=== PATIENT | female | born 1935 | race Caucasian/White ===

== ENCOUNTER 2018-08-21 06:50 | Emergency (ER) | payer MEDICARE ==
[~2018-08-21] VITALS: Ht 167.6 cm; Wt 52.2 kg
[~2018-08-21 06:50] MED LIST: ACIDOPHILUS1 EAC4 PO; ASPIRIN81 MG PO; ATIVAN0.5 MG PO; NORVASC2.5 MG PO
--- OUTSIDE RECORDS SUMMARY | 2018-08-21 06:53 | XMS REPORT ---
Author Author [facility] Address Unknown Phone Unavailable Care Team Providers Care Rn Endocrinology Name Role Phone LACIE RODRÍGUEZ Unavailable Unavailable Payers Payer Name Policy Type Policy Number Effective Date Expiration Date Problems This patient has no known problems. Allergies, Adverse Reactions, Alerts Allergy Name Allergy Type Status Severity Reaction(s) Onset Date Inactive Date Treating Clinician Comments Iodine and Iodide Containing Produc DA Active 2018-05-14 00:00:00 NSAIDS (Non-Steroidal Anti-Inflamma DA Active 2018-05-14 00:00:00 Penicillins DA Active AL 2018-05-14 00:00:00 Sulfa (Sulfonamide Antibiotics) DA Active AL 2018-05-14 00:00:00 codeine DA Active AL 2018-05-14 00:00:00 hydrocodone DA Active U 2018-05-14 00:00:00 ondansetron DA Active U 2018-05-14 00:00:00 ondansetron DA Active U 2017-08-08 00:00:00 Iodine and Iodide Containing Produc DA Active 2017-07-27 00:00:00 Penicillins DA Active AL 2017-07-27 00:00:00 Sulfa (Sulfonamide Antibiotics) DA Active AL 2017-07-27 00:00:00 codeine DA Active AL 2017-07-27 00:00:00 hydrocodone DA Active U 2017-07-27 00:00:00 Medications This patient has no known medications. Results Test Description Test Time Test Comments Text Results Atomic Results Result Comments - XR HIP W/PEL UNI 2+V LT 2018-08-09 13:35:00 Name: MARALJOHN [facility] : 1935 Age/S:82 /F [address] [facility] Unit#:[id number] Loc: [place] [address] Phys: Sigifredo Elliott MD Dis Date: PHONE #: [phone] Status: PRE ER FAX #: [phone] Exam Date: 08/09/2018 Reason: pain EXAMS: CPT CODE: [id number] XR HIP W/PE[place] UNI 2+[place] [address] TECHNIQUE - XR HIP W/PEL UNI 2+V LT . COMPARISON: None provided. HISTORY: 82 years Female pain FINDINGS: Bones: No acute fracture. No dislocation. No suspicious bone lesion. Fixation device left hip in place on anatomic alignment. Joints: Mild osteophytes. Mild joint space reduction. No subchondral bone lesions. No bony erosions. Soft tissues: No significant abnormalities. Other: None. IMPRESSION: No acute fracture. Mild osteoarthritic changes. Fixation device left hip in place on anatomic alignment. at 1336 Reported and signed by: Shawn Brunner M.D. CC: Lacie Medellin MD; Sigifredo Elliott MD Technologist: Sharon Lewis RT(R)(CT) Trnscrpt Data: 08/09/2018 (1988) [email or web address] Orig Print D/T: S: 08/09/2018 (1031) PAGE 1 Signed Report - XR L-SPINE 2/3 VIEWS 2018-08-09 13:32:00 Name: JOHN ALICIA [facility] : 1935 Age/S:82 /F [address] [facility] Unit#:[id number] Loc: [place] [address] Phys: Sigifredo Elliott MD Dis Date: PHONE #: [phone] Status: PRE ER FAX #: [phone] Exam Date: 08/09/2018 Reason: pain EXAMS: CPT CODE: [id number] XR L-SPINE 2/3 VIEWS 54032 TECHNIQUE - XR L-SPINE 2/3 VIEWS . COMPARISON: None provided. HISTORY: 82 years Female pain FINDINGS: Bones: Five non-rib bearing lumbar vertebrae. Multilevel osteophytes. No compression fractures. No suspicious focal bone lesion. Alignment: No spondylolisthesis. Scoliosis. Intervertebral discs: Multilevel disc height reduction. Facet joints: Multilevel hypertrophic changes in lumbar spine. SI joints: No significant abnormalities. Soft tissues: No abnormalities. Other: None. IMPRESSION: Multilevel degenerative changes. No acute fractures. at 1332 Reported and signed by: Shawn Brunner M.D. CC: Lacie Medellin MD; Sigifredo Elliott MD Technologist: Sharon Lewis RT(R)(CT) Trnscrpt Data: 08/09/2018 (3331) [email or web address] Orig Print D/T: S: 08/09/2018 (2593) PAGE 1 Signed Report - XR HIP W/PEL UNI 2+V LT 2018-08-01 12:06:00 FAX: Mumtaz Medellin [phone] [place]: O St: REG FAX: Ender Rodríguez MD [phone] Name: JOHN ALICIA [facility] : 1935 Age/S: 82/F [address] [facility] Unit #: [id number] Loc: [facility] [place] [address] Phys: Ender Kirk MD Acct: [id number] Dis Date: Status: REG RCR PHONE #: [phone] Exam Date: 08/01/2018 1159 FAX #: [phone] Reason: FX EXAMS: CPT CODE: [id number] XR HIP W/PEL UNI 2+[place] [address] HISTORY: Fracture follow-up. COMPARISON: June 20, 2018. 3 threaded screws stabilizing the left femoral neck and good anatomic alignment. Narrowed hip joint without AVN. Symphysis is well opposed. SI joint is unremarkable. Soft tissues and mineralization are normal vascular calcifications. IMPRESSION: 3 threaded screws stabilizing the left femoral neck and good anatomic alignment. at 1206 Reported and signed by: Onur Steven M.D. CC: Lacie Medellin MD; Ender Kirk MD Technologist: RT Joana(R) Trnscrd Date/Time/By: 08/01/2018 (8397) : By: [email or web address] Orig Print D/T: S: 08/01/2018 (3772) PAGE 1 Signed Report - XR HIP W/PEL UNI 2+V LT 2018-06-20 10:57:00 FAX: Mumtaz Medellin Si [phone] [place]: O St: REG FAX: Ender Rodríguez MD [phone] Name: JOHN ALICIA [facility] : 1935 Age/S: 82/F [address] [facility] Unit #: [id number] Loc: [place] [address] Phys: Ender Kirk MD Acct: [id number] Dis Date: Status: REG RCR PHONE #: [phone] Exam Date: 06/20/2018 1037 FAX #: [phone] Reason: FX EXAMS: CPT CODE: [id number] XR HIP W/PEL UNI 2+[place] [address] HISTORY: Fracture follow-up. COMPARISON: May 28, 2018. Threaded screws (3) stabilizing the left hip. Fracture line is not visible. Hip joint is narrowed. No AVN. Symphysis is well opposed. SI joint is unremarkable. Trabecular pattern and mineralization are normal. IMPRESSION: Threaded screws stabilizing the left hip in good anatomic alignment without AVN. at 1057 Reported and signed by: Onur Steven M.D. CC: Lacie Medellin MD; Ender Kirk MD Technologist: RT Joana(R) Trnscrd Date/Time/By: 06/20/2018 (5646) : By: [email or web address] Orig Print D/T: S: 06/20/2018 (1090) PAGE 1 Signed Report - CT UP EXTREM W/O CONT RT 2018-06-04 15:09:00 Name: JOHN ALICIA [facility] : 1935 Age/S: 82 / F [address] [facility] Unit #: [id number] Loc: [place] [address] Phys: Benjamin Frances Presley DO Acct: [id number] Dis Date: Status: ADM IN PHONE #: [phone] Exam Date: 06/04/2018 1107 FAX #: [phone] Reason: FALL Report Has Been Amended EXAMS: CPT CODE: [id number] [place] EXTREM W/[place] [address] Addendum - 06/04/2018 SIGNED 06/05/2018 ADDENDUM: [id number] CT/CTUEWORT CORRECTION: EXAM SHOULD READ CT RIGHT ELBOW WITHOUT CONTRAST at 1035 Reported and signed by: Onur Steven M.D. Transcribed: 06/04/2018 (9027) [email or web address] Report HISTORY: Epicondylar fracture versus artifact. COMPARISON: X-ray from June 01, 2018. CT left elbow without contrast: Automated exposure control. 3-D images No fracture of the medial epicondyle. No fracture of the lateral epicondyle. No fracture of the radius or the ulnar of the visualized humerus. No joint fluid is no collin. No bursal fluid collection. Musculature appears within normal limits. IMPRESSION: No acute fracture of the elbow including the medial epicondyle. No joint fluid. at 1502 Reported and signed by: Onur Steven M.D. CC: Lacie Cleaning MD; Benjamin Frances DO Technologist:Evelia Burgos,RT(R),CT CTDI: DLP: Trnscb Date/Time: 06/04/2018 (1502) [email or web address] Orig Print D/T: S: 06/04/2018 (2565) CTDI: DLP: PAGE 1 Signed Report - CT UP EXTREM W/O CONT RT 2018-06-04 15:02:00 Name: JOHN ALICIA [facility] : 1935 Age/S: 82 / F [address] [facility] Unit #: [id number] Loc: [place] [address] Phys: Benjamin Frances DO Acct: [id number] Dis Date: Status: ADM IN PHONE #: [phone] Exam Date: 06/04/2018 1107 FAX #: [phone] Reason: FALL EXAMS: CPT CODE: [id number] [place] UP EXTREM W/[place] [address] HISTORY: Epicondylar fracture versus artifact. COMPARISON: X-ray from June 01, 2018. CT left elbow without contrast: Automated exposure control. 3-D images No fracture of the medial epicondyle. No fracture of the lateral epicondyle. No fracture of the radius or the ulnar of the visualized humerus. No joint fluid is noted. No bursal fluid collection. Musculature appears within normal limits. IMPRESSION: No acute fracture of the elbow including the medial epicondyle. No joint fluid. at 1502 Reported and signed by: Onur Steven M.D. CC: Lacie Medellin MD; Benjamin Frances DO Technologist:Evelia Burgos ,RT(R),CT CTDI: DLP: Trnscb Date/Time: 06/04/2018 (4764) [email or web address] Orig Print D/T: S: 06/04/2018 (2327) CTDI: DLP: PAGE 1 Signed Report - XR SACRUM/COCCYX 2 + V 2018-06-01 16:52:00 FAX: Mumtaz Medellin Si [phone] [place]: St: ADM FAX: Terrie Drew MD [phone] FAX: Benjamin Hernandez [phone] Name: JOHN ALICIA [facility] : 1935 Age/S: 82/F [address] [facility] Unit #: [id number] Loc: [address] [place] [address] Phys: Terrie Mcclure MD Acct: [id number] Dis Date: Status: ADM IN PHONE #: [phone] Exam Date: 06/01/2018 1628 FAX #: [phone] Reason: SP FALL EXAMS: CPT CODE: [id number] XR SACRUM/COCCYX 2 + V 62351 HISTORY: Pain status post fall EXAM: AP and lateral sacrum/coccyx FINDINGS: No acute fracture of the sacrum or coccyx. No dislocation of the sacrococcygeal junction. No diastases of the SI joints. Degenerative changes of the pubic symphysis. Visualized pelvis is intact. IMPRESSION: No acute fracture of the sacrum/coccyx. at 7492 Reported and signed by: Caryn Hernandez D.O. CC: Lacie Medellin MD; Terrie Mcclure MD; Benjamin Frances [facility] Technologist: MAGNO PINTO, RT(R); AGUS VELAZCO RT (R) Trnscrd Date/Time/By: 06/01/2018 (1651) : By: [email or web address] Orig Print D/T: S: 06/01/2018 (4843) PAGE 1 Signed Report - XR ELBOW 3 + V RT 2018-06-01 16:50:00 FAX: Mumtaz Medellin Si [phone] [place]: St: ADM FAX: Terrie Drew MD [phone] FAX: [place] Juan DanielBenjamin sreedhar [phone] Name: JOHN ALICIA [facility] : 1935 Age/S: 82/F [address] [facility] Unit #: [id number] Loc: V.[address] [place] [address] Phys: Terrie Mcclure MD Acct: [id number] Dis Date: Status: ADM IN PHONE #: [phone] Exam Date: 06/01/2018 1620 FAX #: [phone] Reason: SP FALL EXAMS: CPT CODE: [id number] XR ELBOW 3 + [place] [address] CLINICAL HISTORY: Pain status post fall TECHNIQUE: AP, oblique, and lateral views of the right elbow. COMPARISON: None FINDINGS: Indistinct linear lucency projected over the medial epicondyle on oblique view only. No bony callus or periosteal reaction. No joint dislocation. No secondary evidence of elbow joint effusion. Regional soft tissues are unremarkable. IMPRESSION: Questionable nondisplaced medial epicondylar fracture versus artifact. Consider follow-up x-ray or CT. at 1650 Reported and signed by: Caryn Hernandez D.O. CC: Lacie Medellin MD; Terrie Mcclure MD; Benjamin Frances [facility] Technologist: MAGNO PINTO, RT(R); AGUS VELAZCO RT (R) [facility] Date/Time/By: 06/01/2018 (677) : By: [email or web address] Orig Print D/T: S: 06/01/2018 (0075) PAGE 1 Signed Report - XR L-SPINE 2/3 VIEWS 2018-06-01 16:47:00 FAX: Mumtaz Medellin [phone] [place]: St: ADM FAX: Terrie Drew MD [phone] FAX: Benjamin Hernandez [phone] Name: JOHN ALICIA [facility] : 1935 Age/S: 82/F [address] [facility] Unit #: [id number] Loc: [address] [place] [address] Phys: Terrie Mcclure MD Acct: [id number] Dis Date: Status: ADM IN PHONE #: [phone] Exam Date: 06/01/2018 1625 FAX #: [phone] Reason: SP FALL EXAMS: CPT CODE: [id number] XR L-SPINE 2/3 VIEWS 88202 HISTORY: Pain status post fall TECHNIQUE: AP, lateral, and lumbosacral views of the lumbar spine. FINDINGS: Mild lumbar levoscoliosis. Slight grade 1 anterolisthesis at L4-L5. Vertebral body heights are preserved. Mild L5-S1 disc space loss. Lower lumbar facet arthrosis. No evident paraspinal soft tissue contour abnormality. Aortoiliac atherosclerotic vascular calcification. Colonic fecal retention. IMPRESSION: No acute fracture or subluxation of the lumbar spine. at 2396 Reported and signed by: Caryn Hernandez D.O. CC: Lacie Medellin MD; Terrie Mcclure MD; Benjamin Frances DO Technologist: MAGNO PINTO, RT(R); AGUS VELAZCO RT (R) Trnscrd Date/Time/By: 06/01/2018 (1777) : By: [email or web address] Orig Print D/T: S: 06/01/2018 (1028) PAGE 1 Signed Report - XR HIP W/PEL UNI 2+V LT 2018-05-28 15:29:00 FAX: Mumtaz Medellin, [place]: St: ADM FAX: Benjamin Hernandez [phone] Name: JOHN ALICIA [facility] : 1935 Age/S: 82/F [address] [facility] Unit #: [id number] Loc: V.[address] [place] [address] Phys: Benjamin Frances DO Acct: [id number] Dis Date: Status: ADM IN PHONE #: [phone] Exam Date: 05/28/2018 1514 FAX #: [phone] Reason: buldgig of left hip at incision EXAMS: CPT CODE: [id number] XR HIP W/PEL UNI 2+[place] [address]52 REASON FOR EXAM: buldgig of left hip at incision EXAM ORDER DATE: 05/28/2018 12:00 AM Ordering [place]: Benjamin Frances DO PROCEDURE: - XR HIP W/PEL UNI 2+V LT COMPARISON: 05/15/2018 FINDINGS: 3 views of the left hip with frontal view of the pelvis were obtained. The osseous structures are unremarkable in size and shape with 3 orthopedic screws extending across the left femoral neck. The joint spaces are maintained. No evidence of acute fracture. There is normal alignment of the left hip joint IMPRESSION: Unremarkable left hip status post ORIF. No significant interval change at 1529 Reported and signed by: Allan Maldonado M.D. CC: Lacie Medellin MD; Benjamin Frances DO Technologist: RT ROB(R) Trnscrd Date/Time/By: 05/28/2018 (1529) : By: Fran Orig Print D/T: S: 05/28/2018 (3178) PAGE 1 Signed Report CBC W/AUTO DIFF 2018-05-28 06:59:00 WHITE BLOOD CELL (test code=WBC) 6.1 K/mm3 4.5-12.5 RED BLOOD CELL (test code=RBC) 3.69 mill/mm3 3.7-5.2 HEMOGLOBIN (test code=HGB) 10.9 gram/dL 11.5-15.5 HEMATOCRIT (test code=HCT) 34.9 % 36.0-46.0 MEAN CELL VOLUME (test code=MCV) 94.6 fL 80-98 MEAN CELL HGB (test code=MCH) 29.5 picogram 27.0-33.0 MEAN CELL HGB CONCETRATION (test code=MCHC) 31.2 gram/dL 33.0-36.0 RED CELL DISTRIBUTION WIDTH (test code=RDW) 13.5 % 11.6-16.2 RED CELL DISTRIBUTION WIDTH SD (test code=RDW-SD) 46.5 fL 37.0-51.0 PLATELET COUNT (test code=PLT) 300 K/mm3 150-450 MEAN PLATELET VOLUME (test code=MPV) 10.8 fL 6.7-11.0 NEUTROPHIL % (test code=NT%) 61.7 % 39.0-69.0 IMMATURE GRANULOCYTE % (test code=IG%) 0.2 % 0.0-5.0 LYMPHOCYTE % (test code=LY%) 27.5 % 25.0-55.0 MONOCYTE % (test code=MO%) 7.8 % 0.0-10.0 EOSINOPHIL % (test code=EO%) 2.1 % 0.0-5.0 BASOPHIL % (test code=BA%) 0.7 % 0.0-1.0 NUCLEATED RBC % (test code=NRBC%) 0.0 % 0-0 NEUTROPHIL # (test code=NT#) 3.79 K/mm3 1.8-7.7 IMMATURE GRANULOCYTE # (test code=IG#) 0.01 x10 3/uL 0-0.03 LYMPHOCYTE # (test code=LY#) 1.69 K/mm3 1.0-5.0 MONOCYTE # (test code=MO#) 0.48 K/mm3 0-0.8 EOSINOPHIL # (test code=EO#) 0.13 K/mm3 0.0-0.5 BASOPHIL # (test code=BA#) 0.04 K/mm3 0.0-0.2 NUCLEATED RBC # (test code=NRBC#) 0.00 K/mm3 0.0-0.1 05/27/[address] [place] [address] METABOLIC [id number] 06:59:00* Test Item Value Reference Range Comments SODIUM (test code=NA) 138 mmol/L 136-145 POTASSIUM (test code=K) 3.8 mmol/L 3.5-5.1 CHLORIDE (test code=CL) 101.0 mmol/L 98-107 CARBON DIOXIDE (test code=CO2) 31.0 mmol/L 21-32 ANION GAP (test code=GAP) 9.8 10-20 GLUCOSE (test code=GLU) 99 mg/dL 74-106 BLOOD UREA NITROGEN (test code=BUN) 17 mg/dL 7-18 GLOMERULAR FILTRATION RATE (test code=GFR) 43 mL/min >=60 Estimated GFR by using Modified MDRD formula.Chronic kidney disease is defined as either kidney damageor GFR <60 mL/min/1.73 m2 for >3 months. CREATININE (test code=CREAT) 1.20 mg/dL 0.55-1.02 Note change in reference range due to change in reagent. BUN/CREATININE RATIO (test code=BUN/CREA) 14.4 10-20 CALCIUM (test code=CA) 9.1 mg/dL 8.5-10.1 05/27/[address] [place] [address] METABOLIC [id number] 06:53:00* Test Item Value Reference Range Comments SODIUM (test code=NA) 138 mmol/L 136-145 POTASSIUM (test code=K) 3.8 mmol/L 3.5-5.1 CHLORIDE (test code=CL) 101.0 mmol/L 98-107 CARBON DIOXIDE (test code=CO2) mmol/L 21-32 ANION GAP (test code=GAP) 10-20 GLUCOSE (test code=GLU) mg/dL 74-106 BLOOD UREA NITROGEN (test code=BUN) mg/dL 7-18 GLOMERULAR FILTRATION RATE (test code=GFR) mL/min >=60 CREATININE (test code=CREAT) mg/dL 0.55-1.02 BUN/CREATININE RATIO (test code=BUN/CREA) 10-20 CALCIUM (test code=CA) mg/dL 8.5-10.1 05/27/18 2310- XR ABDOMEN AP 1 [id number] 20:20:00 FAX: Mumtaz Maynard, [place]: B St: ADM FAX: Benjamin Hernandez [phone] Name: JOHN ALICIA [facility] : 1935 Age/S: 82/F [address] [facility] Unit #: [id number] Loc: [address] [place] [address] Phys: Benjamin Frances [facility] DO Acct: [id number] Dis Date: Status: ADM IN PHONE #: [phone] Exam Date: 05/26/2018 1950 FAX #: [phone] Reason: constipation EXAMS: CPT CODE: [id number] XR ABDOMEN AP 1 V 72349 HISTORY: Constipation. COMPARISON: November 04, 2017. Large amount of fecal material throughout the colon consistent constipation. Phleboliths. Coarse calcifications in the left lower quadrant noted again. The exact location is not clear. DJD of the lumbar spine. IMPRESSION: Constipation without bowel obstruction. 19 at 2019 Reported and signed by: Onur Steven M.D. CC: Lacie Medellin MD; Benjamin Frances Fo ng DO Technologist: Orquidea Bowling RT(R); AVINASH FAIRCHILD RT(R) Trnscrd Date/Time/By: 05/26/2018 (2019) : By: [email or web address] Orig Print D/T: S: (2023) PAGE 1 Signed Rep ort BASIC METABOLIC [id number] 12:45:00* Test Item Value Reference Range Comments SODIUM (test code=NA) 137 mmol/L 136-145 POTASSIUM (test code=K) 4.2 mmol/L 3.5-5.1 CHLORIDE (test code=CL) 100.0 mmol/L 98-107 CARBON DIOXIDE (test code=CO2) 32.0 mmol/L 21-32 ANION GAP (test code=GAP) 9.2 10-20 GLUCOSE (test code=GLU) 115 mg/dL 74-106 BLOOD UREA NITROGEN (test code=BUN) 26 mg/dL 7-18 GLOMERULAR FILTRATION RATE (test code=GFR) 43 mL/min >=60 Estimated GFR by using Modified MDRD formula.Chronic kidney disease is defined as either kidney damageor GFR <60 mL/min/1.73 m2 for >3 months. CREATININE (test code=CREAT) 1.20 mg/dL 0.55-1.02 Note change in reference range due to change in reagent. BUN/CREATININE RATIO (test code=BUN/CREA) 22.0 10-20 CALCIUM (test code=CA) 9.2 mg/dL 8.5-10.1 BASIC METABOLIC [id number] 12:41:00* Test Item Value Reference Range Comments SODIUM (test code=NA) 137 mmol/L 136-145 POTASSIUM (test code=K) 4.2 mmol/L 3.5-5.1 CHLORIDE (test code=CL) 100.0 mmol/L 98-107 CARBON DIOXIDE (test code=CO2) mmol/L 21-32 ANION GAP (test code=GAP) 10-20 GLUCOSE (test code=GLU) mg/dL 74-106 BLOOD UREA NITROGEN (test code=BUN) mg/dL 7-18 GLOMERULAR FILTRATION RATE (test code=GFR) mL/min >=60 CREATININE (test code=CREAT) mg/dL 0.55-1.02 BUN/CREATININE RATIO (test code=BUN/CREA) 10-20 CALCIUM (test code=CA) mg/dL 8.5-10.1 URINALYSIS [id number] 15:55:00* Test Item Value Reference Range Comments UA COLOR (test code=COLU) LIGHT YELLOW YELLOW UA APPEARANCE (test code=APPU) CLEAR CLEAR UA GLUCOSE DIPSTICK (test code=DGLUU) NEGATIVE mg/dL NEGATIVE UA BILIRUBIN DIPSTICK (test code=BILU) NEGATIVE mg/dL NEGATIVE UA KETONE DIPSTICK (test code=KETU) Negative mg/dL NEGATIVE UA SPECIFIC GRAVITY (test code=SGU) 1.013 1.001-1.035 UA BLOOD DIPSTICK (test code=VALERIY) Negative NEGATIVE UA PH DIPSTICK (test code=JENNIFER) 6.0 5.0-8.0 UA PROTEIN DIPSTICK (test code=PROU) Negative mg/dL NEGATIVE UA UROBILINIOGEN DIPSTICK (test code=URO) NEGATIVE mg/dL NEGATIVE UA NITRITE DIPSTICK (test code=ANNE) NEGATIVE NEGATIVE UA LEUKOCYTE ESTERASE W REFLEX (test code=LEUUR) NEGATIVE NEGATIVE UA WBC (test code=WBCU) 0-5 #/HPF 0-5 UA RBC (test code=RBCU) 0-2 #/HPF 0-5 UA EPITHELIAL CELLS (test code=EPIU) FEW per HPF FEW UA BACTERIA (test code=BACU) FEW #/HPF NONE UA MUCUS (test code=MUCU) FEW #/LPF FEW Urine Source? Catheter- CT ABD PELVIS W/O [id number] 13:44:00 Name: JOHN ALICIA [facility] : 1935 Age/S: 82 / F [address] Unit #: [id number] Loc: [place] [address] Phys: Castillo Maynard MD Acct: [id number] Di s Date: Status: ADM IN PHONE #: Exam Date: 05/23/2018 1022 FAX #: Reason: SHARP PAIN ABDOMEN RLQ EXAMS: CPT CODE: [id number] CT ABD PELVIS W/O CONT 74384 EXAM: CT of the abdomen a nd pelvis without contrast; INFORMATION: Abdominal pain; TECHNIQUE AND FINDINGS: CT dose reduction protocol; 5 mm cuts t hrough the abdomen and pelvis without contrast. There is significant dilat ation of the right renal collecting system associated with parenchymal atr ophy. This is unchanged compared with a study from September 16, 2017 and is co nsistent with chronic IJ obstruction. Calcification cranial to the d ilated collecting system likely represents a large plaque in the right fem oral artery. There are also plaques in the left renal artery and there are extensive calcified plaques in the abdominal aorta. Again demonstra collin is a cyst along the lateral aspect of the left kidney, measuring 3 cm in largest diameter. No acute bowel abnormalities. No pelvic mass le sions. Status post laparotomy with extreme thinning of the anterior abdomi nal wall in the mid abdominal region. Orthopedic hardware is seen in the left hip. Lung bases are clear. IMPRESSION: 1. No acute abdominal or pelvic abnormalities. 2. 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 3. Left renal cyst. at 1344 Reported and signed b y: Yasmani Ventura M.D. CC: Lacie Medellin MD; Trevor Frances on [facility]; Lamin Maynard Technologist:Dave Palomares RT(R),(MR),(CT) CTDI: DLP: Trnscb Date/Time: 05/23/2018 (7408) Aleksandr Orig Print D/T: S: 05/23/2018 (3296) CTDI: DLP: PAGE 1 Signed Report BASIC METABOLIC PANEL 2018-05-22 19:13:00* Test Item Value Reference Range Comments SODIUM (test code=NA) 141 mmol/L 136-145 POTASSIUM (test code=K) 4.3 mmol/L 3.5-5.1 CHLORIDE (test code=CL) 104.0 mmol/L 98-107 CARBON DIOXIDE (test code=CO2) mmol/L 21-32 ANION GAP (test code=GAP) 10-20 GLUCOSE (test code=GLU) mg/dL 74-106 BLOOD UREA NITROGEN (test code=BUN) mg/dL 7-18 GLOMERULAR FILTRATION RATE (test code=GFR) mL/min >=60 CREATININE (test code=CREAT) mg/dL 0.55-1.02 BUN/CREATININE RATIO (test code=BUN/CREA) 10-20 CALCIUM (test code=CA) mg/dL 8.5-10.1 BASIC METABOLIC [id number] 19:13:00* Test Item Value Reference Range Comments SODIUM (test code=NA) 141 mmol/L 136-145 POTASSIUM (test code=K) 4.3 mmol/L 3.5-5.1 CHLORIDE (test code=CL) 104.0 mmol/L 98-107 CARBON DIOXIDE (test code=CO2) 30.0 mmol/L 21-32 ANION GAP (test code=GAP) 11.3 10-20 GLUCOSE (test code=GLU) 101 mg/dL 74-106 BLOOD UREA NITROGEN (test code=BUN) 22 mg/dL 7-18 GLOMERULAR FILTRATION RATE (test code=GFR) 53 mL/min >=60 Estimated GFR by using Modified MDRD formula.Chronic kidney disease is defined as either kidney damageor GFR <60 mL/min/1.73 m2 for >3 months. CREATININE (test code=CREAT) 1.00 mg/dL 0.55-1.02 Note change in reference range due to change in reagent. BUN/CREATININE RATIO (test code=BUN/CREA) 22.5 10-20 CALCIUM (test code=CA) 8.8 mg/dL 8.5-10.1 CBC W/AUTO [id number] 18:57:00* Test Item Value Reference Range Comments WHITE BLOOD CELL (test code=WBC) 7.2 K/mm3 4.5-12.5 RED BLOOD CELL (test code=RBC) 3.61 mill/mm3 3.7-5.2 HEMOGLOBIN (test code=HGB) 10.7 gram/dL 11.5-15.5 HEMATOCRIT (test code=HCT) 33.1 % 36.0-46.0 MEAN CELL VOLUME (test code=MCV) 91.7 fL 80-98 MEAN CELL HGB (test code=MCH) 29.6 picogram 27.0-33.0 MEAN CELL HGB CONCETRATION (test code=MCHC) 32.3 gram/dL 33.0-36.0 RED CELL DISTRIBUTION WIDTH (test code=RDW) 13.5 % 11.6-16.2 RED CELL DISTRIBUTION WIDTH SD (test code=RDW-SD) 45.9 fL 37.0-51.0 PLATELET COUNT (test code=PLT) 219 K/mm3 150-450 MEAN PLATELET VOLUME (test code=MPV) 11.0 fL 6.7-11.0 NEUTROPHIL % (test code=NT%) 60.6 % 39.0-69.0 IMMATURE GRANULOCYTE % (test code=IG%) 0.6 % 0.0-5.0 LYMPHOCYTE % (test code=LY%) 26.7 % 25.0-55.0 MONOCYTE % (test code=MO%) 9.4 % 0.0-10.0 EOSINOPHIL % (test code=EO%) 2.1 % 0.0-5.0 BASOPHIL % (test code=BA%) 0.6 % 0.0-1.0 NUCLEATED RBC % (test code=NRBC%) 0.0 % 0-0 NEUTROPHIL # (test code=NT#) 4.38 K/mm3 1.8-7.7 IMMATURE GRANULOCYTE # (test code=IG#) 0.04 x10 3/uL 0-0.03 LYMPHOCYTE # (test code=LY#) 1.93 K/mm3 1.0-5.0 MONOCYTE # (test code=MO#) 0.68 K/mm3 0-0.8 EOSINOPHIL # (test code=EO#) 0.15 K/mm3 0.0-0.5 BASOPHIL # (test code=BA#) 0.04 K/mm3 0.0-0.2 NUCLEATED RBC # (test code=NRBC#) 0.00 K/mm3 0.0-0.1 MANUAL DIFF REQUIRED (test code=MDIFF) NO BASIC METABOLIC [id number] 19:15:00* Test Item Value Reference Range Comments SODIUM (test code=NA) 142 mmol/L 136-145 POTASSIUM (test code=K) 3.6 mmol/L 3.5-5.1 CHLORIDE (test code=CL) 106.0 mmol/L 98-107 CARBON DIOXIDE (test code=CO2) 29.0 mmol/L 21-32 ANION GAP (test code=GAP) 10.6 10-20 GLUCOSE (test code=GLU) 126 mg/dL 74-106 BLOOD UREA NITROGEN (test code=BUN) 22 mg/dL 7-18 GLOMERULAR FILTRATION RATE (test code=GFR) 48 mL/min >=60 Estimated GFR by using Modified MDRD formula.Chronic kidney disease is defined as either kidney damageor GFR <60 mL/min/1.73 m2 for >3 months. CREATININE (test code=CREAT) 1.10 mg/dL 0.55-1.02 Note change in reference range due to change in reagent. BUN/CREATININE RATIO (test code=BUN/CREA) 19.3 10-20 CALCIUM (test code=CA) 8.3 mg/dL 8.5-10.1 [id number] 19:15:00* Test Item Value Reference Range Comments MAGNESIUM (test code=MAG) 2.3 mg/dL 1.8-2.4 BASIC METABOLIC [id number] 19:09:00* Test Item Value Reference Range Comments SODIUM (test code=NA) 142 mmol/L 136-145 POTASSIUM (test code=K) 3.6 mmol/L 3.5-5.1 CHLORIDE (test code=CL) 106.0 mmol/L 98-107 CARBON DIOXIDE (test code=CO2) mmol/L 21-32 ANION GAP (test code=GAP) 10-20 GLUCOSE (test code=GLU) mg/dL 74-106 BLOOD UREA NITROGEN (test code=BUN) mg/dL 7-18 GLOMERULAR FILTRATION RATE (test code=GFR) mL/min >=60 CREATININE (test code=CREAT) mg/dL 0.55-1.02 BUN/CREATININE RATIO (test code=BUN/CREA) 10-20 CALCIUM (test code=CA) mg/dL 8.5-10.1 [id number] 19:09:00* Test Item Value Reference Range Comments MAGNESIUM (test code=MAG) mg/dL 1.8-2.4 BASIC METABOLIC [id number] 10:53:00* Test Item Value Reference Range Comments SODIUM (test code=NA) 140 mmol/L 136-145 POTASSIUM (test code=K) 3.2 mmol/L 3.5-5.1 CHLORIDE (test code=CL) 102.0 mmol/L 98-107 CARBON DIOXIDE (test code=CO2) 31.0 mmol/L 21-32 ANION GAP (test code=GAP) 10.2 10-20 GLUCOSE (test code=GLU) 100 mg/dL 74-106 BLOOD UREA NITROGEN (test code=BUN) 20 mg/dL 7-18 GLOMERULAR FILTRATION RATE (test code=GFR) 60 mL/min >=60 Estimated GFR by using Modified MDRD formula.Chronic kidney disease is defined as either kidney damageor GFR <60 mL/min/1.73 m2 for >3 months. CREATININE (test code=CREAT) 0.90 mg/dL 0.55-1.02 Note change in reference range due to change in reagent. BUN/CREATININE RATIO (test code=BUN/CREA) 23.1 10-20 CALCIUM (test code=CA) 9.0 mg/dL 8.5-10.1 CBC W/AUTO [id number] 10:01:00* Test Item Value Reference Range Comments WHITE BLOOD CELL (test code=WBC) K/mm3 4.5-12.5 RED BLOOD CELL (test code=RBC) mill/mm3 3.7-5.2 HEMOGLOBIN (test code=HGB) 12.1 gram/dL 11.5-15.5 HEMATOCRIT (test code=HCT) 38.5 % 36.0-46.0 MEAN CELL VOLUME (test code=MCV) fL 80-98 MEAN CELL HGB (test code=MCH) picogram 27.0-33.0 MEAN CELL HGB CONCETRATION (test code=MCHC) gram/dL 33.0-36.0 RED CELL DISTRIBUTION WIDTH (test code=RDW) % 11.6-16.2 RED CELL DISTRIBUTION WIDTH SD (test code=RDW-SD) fL 37.0-51.0 PLATELET COUNT (test code=PLT) K/mm3 150-450 MEAN PLATELET VOLUME (test code=MPV) fL 6.7-11.0 NEUTROPHIL % (test code=NT%) % 39.0-69.0 IMMATURE GRANULOCYTE % (test code=IG%) % 0.0-5.0 LYMPHOCYTE % (test code=LY%) % 25.0-55.0 MONOCYTE % (test code=MO%) % 0.0-10.0 EOSINOPHIL % (test code=EO%) % 0.0-5.0 BASOPHIL % (test code=BA%) % 0.0-1.0 NEUTROPHIL # (test code=NT#) K/mm3 1.8-7.7 LYMPHOCYTE # (test code=LY#) K/mm3 1.0-5.0 MONOCYTE # (test code=MO#) K/mm3 0-0.8 EOSINOPHIL # (test code=EO#) K/mm3 0.0-0.5 BASOPHIL # (test code=BA#) K/mm3 0.0-0.2 CBC W/AUTO [id number] 10:01:00* Test Item Value Reference Range Comments WHITE BLOOD CELL (test code=WBC) 6.2 K/mm3 4.5-12.5 RED BLOOD CELL (test code=RBC) 4.14 mill/mm3 3.7-5.2 HEMOGLOBIN (test code=HGB) 12.1 gram/dL 11.5-15.5 HEMATOCRIT (test code=HCT) 38.5 % 36.0-46.0 MEAN CELL VOLUME (test code=MCV) 93.0 fL 80-98 MEAN CELL HGB (test code=MCH) 29.2 picogram 27.0-33.0 MEAN CELL HGB CONCETRATION (test code=MCHC) 31.4 gram/dL 33.0-36.0 RED CELL DISTRIBUTION WIDTH (test code=RDW) 13.5 % 11.6-16.2 RED CELL DISTRIBUTION WIDTH SD (test code=RDW-SD) 46.0 fL 37.0-51.0 PLATELET COUNT (test code=PLT) 192 K/mm3 150-450 MEAN PLATELET VOLUME (test code=MPV) 11.3 fL 6.7-11.0 NEUTROPHIL % (test code=NT%) 67.6 % 39.0-69.0 IMMATURE GRANULOCYTE % (test code=IG%) 0.2 % 0.0-5.0 LYMPHOCYTE % (test code=LY%) 20.7 % 25.0-55.0 MONOCYTE % (test code=MO%) 8.1 % 0.0-10.0 EOSINOPHIL % (test code=EO%) 2.6 % 0.0-5.0 BASOPHIL % (test code=BA%) 0.8 % 0.0-1.0 NUCLEATED RBC % (test code=NRBC%) 0.0 % 0-0 NEUTROPHIL # (test code=NT#) 4.18 K/mm3 1.8-7.7 IMMATURE GRANULOCYTE # (test code=IG#) 0.01 x10 3/uL 0-0.03 LYMPHOCYTE # (test code=LY#) 1.28 K/mm3 1.0-5.0 MONOCYTE # (test code=MO#) 0.50 K/mm3 0-0.8 EOSINOPHIL # (test code=EO#) 0.16 K/mm3 0.0-0.5 BASOPHIL # (test code=BA#) 0.05 K/mm3 0.0-0.2 NUCLEATED RBC # (test code=NRBC#) 0.00 K/mm3 0.0-0.1 [id number] 20:11:00* Test Item Value Reference Range Comments GLUBED (test code=GLUBED) 122 mg/dL 74-106 Performed by certified back filler operator at [facility] CBC W/AUTO [id number] 05:12:00* Test Item Value Reference Range Comments WHITE BLOOD CELL (test code=WBC) 8.6 K/mm3 4.5-12.5 RED BLOOD CELL (test code=RBC) 3.92 mill/mm3 3.7-5.2 HEMOGLOBIN (test code=HGB) 11.5 gram/dL 11.5-15.5 HEMATOCRIT (test code=HCT) 36.2 % 36.0-46.0 MEAN CELL VOLUME (test code=MCV) 92.3 fL 80-98 MEAN CELL HGB (test code=MCH) 29.3 picogram 27.0-33.0 MEAN CELL HGB CONCETRATION (test code=MCHC) 31.8 gram/dL 33.0-36.0 RED CELL DISTRIBUTION WIDTH (test code=RDW) 13.4 % 11.6-16.2 RED CELL DISTRIBUTION WIDTH SD (test code=RDW-SD) 45.0 fL 37.0-51.0 PLATELET COUNT (test code=PLT) 179 K/mm3 150-450 MEAN PLATELET VOLUME (test code=MPV) 10.9 fL 6.7-11.0 NEUTROPHIL % (test code=NT%) 85.5 % 39.0-69.0 IMMATURE GRANULOCYTE % (test code=IG%) 0.5 % 0.0-5.0 LYMPHOCYTE % (test code=LY%) 8.9 % 25.0-55.0 MONOCYTE % (test code=MO%) 5.1 % 0.0-10.0 EOSINOPHIL % (test code=EO%) 0.0 % 0.0-5.0 BASOPHIL % (test code=BA%) 0.0 % 0.0-1.0 NUCLEATED RBC % (test code=NRBC%) 0.0 % 0-0 NEUTROPHIL # (test code=NT#) 7.34 K/mm3 1.8-7.7 IMMATURE GRANULOCYTE # (test code=IG#) 0.04 x10 3/uL 0-0.03 LYMPHOCYTE # (test code=LY#) 0.76 K/mm3 1.0-5.0 MONOCYTE # (test code=MO#) 0.44 K/mm3 0-0.8 EOSINOPHIL # (test code=EO#) 0.00 K/mm3 0.0-0.5 BASOPHIL # (test code=BA#) 0.00 K/mm3 0.0-0.2 NUCLEATED RBC # (test code=NRBC#) 0.00 K/mm3 0.0-0.1 MANUAL DIFF REQUIRED (test code=MDIFF) NO CBC W/AUTO [id number] 05:06:00* Test Item Value Reference Range Comments WHITE BLOOD CELL (test code=WBC) K/mm3 4.5-12.5 RED BLOOD CELL (test code=RBC) mill/mm3 3.7-5.2 HEMOGLOBIN (test code=HGB) 11.5 gram/dL 11.5-15.5 HEMATOCRIT (test code=HCT) 36.2 % 36.0-46.0 MEAN CELL VOLUME (test code=MCV) fL 80-98 MEAN CELL HGB (test code=MCH) picogram 27.0-33.0 MEAN CELL HGB CONCETRATION (test code=MCHC) gram/dL 33.0-36.0 RED CELL DISTRIBUTION WIDTH (test code=RDW) % 11.6-16.2 RED CELL DISTRIBUTION WIDTH SD (test code=RDW-SD) fL 37.0-51.0 PLATELET COUNT (test code=PLT) K/mm3 150-450 MEAN PLATELET VOLUME (test code=MPV) fL 6.7-11.0 NEUTROPHIL % (test code=NT%) % 39.0-69.0 IMMATURE GRANULOCYTE % (test code=IG%) % 0.0-5.0 LYMPHOCYTE % (test code=LY%) % 25.0-55.0 MONOCYTE % (test code=MO%) % 0.0-10.0 EOSINOPHIL % (test code=EO%) % 0.0-5.0 BASOPHIL % (test code=BA%) % 0.0-1.0 NEUTROPHIL # (test code=NT#) K/mm3 1.8-7.7 LYMPHOCYTE # (test code=LY#) K/mm3 1.0-5.0 MONOCYTE # (test code=MO#) K/mm3 0-0.8 EOSINOPHIL # (test code=EO#) K/mm3 0.0-0.5 BASOPHIL # (test code=BA#) K/mm3 0.0-0.2 - XR HIP W/PEL UNI 2+V [id number] 17:10:00 FAX: Mumtaz Medellin Si [phone] [place]: B St: ADM FAX: Ender Rodríguez MD [phone] FAX: Lamin Whitaker MD [phone] Name: JOHN ALICIA [facility] : 1935 Age/S: 82/F [address] Unit #: [id number] Loc: V.[address] [place] [address] Phys: Ender Kirk MD Acct: [id number] Dis Date: Status: ADM IN ONE #: [phone] Exam Date: 05/15/2018 1549 FAX #: [phone] Reason: post op EXAMS: CPT CODE: [id number] XR HIP W/PEL UNI 2+[place] [address] REASON FOR EXAM: post op EXAM ORDER DATE: 05/15/2018 2:28 PM Ordering [place]: Ender Kirk MD PROCEDURE: - XR HIP W/PEL UNI 2+V LT FINDINGS: 3 views of the left hip with frontal view of the pelvis were obtained. The osseous structures are unrem arkable in size and shape with 3 orthopedic screws extending across the le ft femoral neck. The joint spaces are maintained. No evidence of fracture. There is normal alignment of the left hip joint IMPRESSI ON: Unremarkable left hip status post ORIF of the left femoral neck at 8600 Reported and signed by: Allan Maldonado M.D. CC: Lacie Cleaning MD; Ender Kirk MD; Lamin Maynard Technologist: SUZIE LINDSEY; Adolph Judd, (R Trnscrd Date/Time/By: 05/15/2018 (4834) : By: [email or web address] Orig Print D/T: S: 05/15/2018 (9047) PAGE 1 Signed Report BASIC METABOLIC [id number] 05:53:00* Test Item Value Reference Range Comments SODIUM (test code=NA) 140 mmol/L 136-145 POTASSIUM (test code=K) 3.6 mmol/L 3.5-5.1 CHLORIDE (test code=CL) 102.0 mmol/L 98-107 CARBON DIOXIDE (test code=CO2) 30.0 mmol/L 21-32 ANION GAP (test code=GAP) 11.6 10-20 GLUCOSE (test code=GLU) 109 mg/dL 74-106 BLOOD UREA NITROGEN (test code=BUN) 17 mg/dL 7-18 GLOMERULAR FILTRATION RATE (test code=GFR) 60 mL/min >=60 Estimated GFR by using Modified MDRD formula.Chronic kidney disease is defined as either kidney damageor GFR <60 mL/min/1.73 m2 for >3 months. CREATININE (test code=CREAT) 0.90 mg/dL 0.55-1.02 Note change in reference range due to change in reagent. BUN/CREATININE RATIO (test code=BUN/CREA) 18.0 10-20 CALCIUM (test code=CA) 8.9 mg/dL 8.5-10.1 BASIC METABOLIC [id number] 05:52:00* Test Item Value Reference Range Comments SODIUM (test code=NA) 140 mmol/L 136-145 POTASSIUM (test code=K) 3.6 mmol/L 3.5-5.1 CHLORIDE (test code=CL) 102.0 mmol/L 98-107 CARBON DIOXIDE (test code=CO2) mmol/L 21-32 ANION GAP (test code=GAP) 10-20 GLUCOSE (test code=GLU) mg/dL 74-106 BLOOD UREA NITROGEN (test code=BUN) mg/dL 7-18 GLOMERULAR FILTRATION RATE (test code=GFR) mL/min >=60 CREATININE (test code=CREAT) mg/dL 0.55-1.02 BUN/CREATININE RATIO (test code=BUN/CREA) 10-20 CALCIUM (test code=CA) mg/dL 8.5-10.1 CBC W/AUTO [id number] 05:46:00* Test Item Value Reference Range Comments WHITE BLOOD CELL (test code=WBC) K/mm3 4.5-12.5 RED BLOOD CELL (test code=RBC) mill/mm3 3.7-5.2 HEMOGLOBIN (test code=HGB) 11.9 gram/dL 11.5-15.5 HEMATOCRIT (test code=HCT) 36.8 % 36.0-46.0 MEAN CELL VOLUME (test code=MCV) fL 80-98 MEAN CELL HGB (test code=MCH) picogram 27.0-33.0 MEAN CELL HGB CONCETRATION (test code=MCHC) gram/dL 33.0-36.0 RED CELL DISTRIBUTION WIDTH (test code=RDW) % 11.6-16.2 RED CELL DISTRIBUTION WIDTH SD (test code=RDW-SD) fL 37.0-51.0 PLATELET COUNT (test code=PLT) K/mm3 150-450 MEAN PLATELET VOLUME (test code=MPV) fL 6.7-11.0 NEUTROPHIL % (test code=NT%) % 39.0-69.0 IMMATURE GRANULOCYTE % (test code=IG%) % 0.0-5.0 LYMPHOCYTE % (test code=LY%) % 25.0-55.0 MONOCYTE % (test code=MO%) % 0.0-10.0 EOSINOPHIL % (test code=EO%) % 0.0-5.0 BASOPHIL % (test code=BA%) % 0.0-1.0 NEUTROPHIL # (test code=NT#) K/mm3 1.8-7.7 LYMPHOCYTE # (test code=LY#) K/mm3 1.0-5.0 MONOCYTE # (test code=MO#) K/mm3 0-0.8 EOSINOPHIL # (test code=EO#) K/mm3 0.0-0.5 BASOPHIL # (test code=BA#) K/mm3 0.0-0.2 CBC W/AUTO [id number] 05:46:00* Test Item Value Reference Range Comments WHITE BLOOD CELL (test code=WBC) 7.7 K/mm3 4.5-12.5 RED BLOOD CELL (test code=RBC) 4.04 mill/mm3 3.7-5.2 HEMOGLOBIN (test code=HGB) 11.9 gram/dL 11.5-15.5 HEMATOCRIT (test code=HCT) 36.8 % 36.0-46.0 MEAN CELL VOLUME (test code=MCV) 91.1 fL 80-98 MEAN CELL HGB (test code=MCH) 29.5 picogram 27.0-33.0 MEAN CELL HGB CONCETRATION (test code=MCHC) 32.3 gram/dL 33.0-36.0 RED CELL DISTRIBUTION WIDTH (test code=RDW) 13.5 % 11.6-16.2 RED CELL DISTRIBUTION WIDTH SD (test code=RDW-SD) 45.9 fL 37.0-51.0 PLATELET COUNT (test code=PLT) 191 K/mm3 150-450 MEAN PLATELET VOLUME (test code=MPV) 10.6 fL 6.7-11.0 NEUTROPHIL % (test code=NT%) 71.0 % 39.0-69.0 IMMATURE GRANULOCYTE % (test code=IG%) 0.3 % 0.0-5.0 LYMPHOCYTE % (test code=LY%) 18.2 % 25.0-55.0 MONOCYTE % (test code=MO%) 8.4 % 0.0-10.0 EOSINOPHIL % (test code=EO%) 1.6 % 0.0-5.0 BASOPHIL % (test code=BA%) 0.5 % 0.0-1.0 NUCLEATED RBC % (test code=NRBC%) 0.0 % 0-0 NEUTROPHIL # (test code=NT#) 5.49 K/mm3 1.8-7.7 IMMATURE GRANULOCYTE # (test code=IG#) 0.02 x10 3/uL 0-0.03 LYMPHOCYTE # (test code=LY#) 1.41 K/mm3 1.0-5.0 MONOCYTE # (test code=MO#) 0.65 K/mm3 0-0.8 EOSINOPHIL # (test code=EO#) 0.12 K/mm3 0.0-0.5 BASOPHIL # (test code=BA#) 0.04 K/mm3 0.0-0.2 NUCLEATED RBC # (test code=NRBC#) 0.00 K/mm3 0.0-0.1 MANUAL DIFF REQUIRED (test code=MDIFF) NO [id number] 21:50:00* Test Item Value Reference Range Comments MAGNESIUM (test code=MAG) 2.4 mg/dL 1.8-2.4 BASIC METABOLIC [id number] 16:16:00* Test Item Value Reference Range Comments SODIUM (test code=NA) 139 mmol/L 136-145 POTASSIUM (test code=K) 3.2 mmol/L 3.5-5.1 CHLORIDE (test code=CL) 102.0 mmol/L 98-107 CARBON DIOXIDE (test code=CO2) 31.0 mmol/L 21-32 ANION GAP (test code=GAP) 9.2 10-20 GLUCOSE (test code=GLU) 96 mg/dL 74-106 BLOOD UREA NITROGEN (test code=BUN) 19 mg/dL 7-18 GLOMERULAR FILTRATION RATE (test code=GFR) 53 mL/min >=60 Estimated GFR by using Modified MDRD formula.Chronic kidney disease is defined as either kidney damageor GFR <60 mL/min/1.73 m2 for >3 months. CREATININE (test code=CREAT) 1.00 mg/dL 0.55-1.02 Note change in reference range due to change in reagent. BUN/CREATININE RATIO (test code=BUN/CREA) 18.3 10-20 CALCIUM (test code=CA) 9.7 mg/dL 8.5-10.1 BASIC METABOLIC [id number] 16:11:00* Test Item Value Reference Range Comments SODIUM (test code=NA) 139 mmol/L 136-145 POTASSIUM (test code=K) 3.2 mmol/L 3.5-5.1 CHLORIDE (test code=CL) 102.0 mmol/L 98-107 CARBON DIOXIDE (test code=CO2) mmol/L 21-32 ANION GAP (test code=GAP) 10-20 GLUCOSE (test code=GLU) mg/dL 74-106 BLOOD UREA NITROGEN (test code=BUN) mg/dL 7-18 GLOMERULAR FILTRATION RATE (test code=GFR) mL/min >=60 CREATININE (test code=CREAT) mg/dL 0.55-1.02 BUN/CREATININE RATIO (test code=BUN/CREA) 10-20 CALCIUM (test code=CA) mg/dL 8.5-10.1 CBC W/O [id number] 16:05:00* Test Item Value Reference Range Comments WHITE BLOOD CELL (test code=WBC) 13.5 K/mm3 4.5-12.5 RED BLOOD CELL (test code=RBC) 4.40 mill/mm3 3.7-5.2 HEMOGLOBIN (test code=HGB) 13.1 gram/dL 11.5-15.5 HEMATOCRIT (test code=HCT) 40.4 % 36.0-46.0 MEAN CELL VOLUME (test code=MCV) 91.8 fL 80-98 MEAN CELL HGB (test code=MCH) 29.8 picogram 27.0-33.0 MEAN CELL HGB CONCETRATION (test code=MCHC) 32.4 gram/dL 33.0-36.0 RED CELL DISTRIBUTION WIDTH (test code=RDW) 13.7 % 11.6-16.2 PLATELET COUNT (test code=PLT) 222 K/mm3 150-450 MEAN PLATELET VOLUME (test code=MPV) 10.8 fL 6.7-11.0 CBC W/O [id number] 16:03:00* Test Item Value Reference Range Comments WHITE BLOOD CELL (test code=WBC) K/mm3 4.5-12.5 RED BLOOD CELL (test code=RBC) mill/mm3 3.7-5.2 HEMOGLOBIN (test code=HGB) 13.1 gram/dL 11.5-15.5 HEMATOCRIT (test code=HCT) 40.4 % 36.0-46.0 MEAN CELL VOLUME (test code=MCV) fL 80-98 MEAN CELL HGB (test code=MCH) picogram 27.0-33.0 MEAN CELL HGB CONCETRATION (test code=MCHC) gram/dL 33.0-36.0 RED CELL DISTRIBUTION WIDTH (test code=RDW) % 11.6-16.2 PLATELET COUNT (test code=PLT) K/mm3 150-450 MEAN PLATELET VOLUME (test code=MPV) fL 6.7-11.0 [id number] 15:44:00* Test Item Value Reference Range Comments ACETAMINOPHEN (test code=ACET) < 10 mcg/mL 10-30 A RANGE OF 10-30 mcg/mL IS A THERAPEUTIC RANGE. TOXIC CONCENTRATIONS: >150 mcg/mL AT 4 HOURS AFTER INGESTION >=50 mcg/mL AT 12 HOURS AFTER INGESTION - CT LOWER EXTRM W/O C [id number] 15:39:00 Name: JOHN ALICIA [facility] : 1935 Age/S: 82 / F [address] [facility] Unit #: [id number] Loc: [place] [address] Phys: YoungAmy Acct: [id number] Dis Date: Status: REG ER PHONE #: [phone] Exam Date: 05/14/2018 1529 FAX #: [phone] Reason: HIP PAIN EXAMS: CPT CODE: [id number] CT LOWER EXTRM W/[place] [address] HISTORY: HIP PAIN TECHNIQUE: 2.[address] of the left hip without contrast. Sagittal and coronal reformatted images were generated. Automated exposure control for dose reduction. COMPARISON: X-ray from earlier today. FINDINGS: Acute nondisplaced subcapital fracture of the left proximal femur. Left hip joint space loss with acetabular marginal osteophytes. Visualized bony pelvis is intact. Degenerative changes of the sacroiliac joints and pubic symphysis. Left hip girdle musculature is grossly normal in configuration. Hysterectomy. Included pelvic contents are otherwise unremarkable. Atherosclerotic vascular disease. IMPRESSION: Acute nondisplaced subcapital fracture of the left proximal femur. at 1539 Reported and signed by: Caryn Hernandez D.O. CC: Lacie Medellin MD; Amy Young DO Technologist:Elaina Kimball RT(R) CTDI: DLP: Trnscb Date/Time: 05/14/2018 (1539) [email or web address] Orig Print D/T: S: 05/14/2018 (3353) CTDI: DLP: PAGE 1 Signed Report - XR L-SPINE 2/3 [id number] 14:37:00 FAX: Mumtaz Medellin Si [phone] [place]: St: REG FAX: Amy Young DO Name: JOHN ALICIA [facility] : 1935 Age/S: 82/F [address] [facility] Unit #: [id number] Loc: [place] [address] Phys: Amy Young DO Acct: [id number] Dis Date: Status: REG ER PHONE #: [phone] Exam Date: 05/14/2018 1415 FAX #: [phone] Reason: BACK PAIN EXAMS: CPT CODE: [id number] XR L-SPINE 2/3 VIEWS 07441 HISTORY: Back pain. COMPARISON: None available. Lumbar spine series, 3 views: No acute fracture. Grade 1 anterolisthesis of L4 over L5 appears degenerative. Vertebral body heights are maintained. Narrowed disc space at L2-L3 level. Schmorl's node at L3 level. Vascular calcifications. Osteopenia. Mild dextroscoliosis. SI joints are visible. IMPRESSION: No acute fracture. Grade 1 anterolisthesis of L4 over L5 appears degenerative. at 1438 Reported and signed by: Onur Steven M.D. CC: Lacie Medellin MD; Amy Young DO Technologist: Jose FAUSTIN(Nitin) Trnscrd Date/Time/By: 05/14/2018 (9615) : By: [email or web address] Orig Print D/T: S: 05/14/2018 (7164) PAGE 1 Signed Report - XR T-SPINE 3 [id number] 14:29:00 FAX: Mumtaz Medellin Si [phone] [place]: St: REG FAX: Amy Young DO Name: JOHN ALICIA [facility] : 1935 Age/S: 82/F [address] [facility] Unit #: [id number] Loc: [place] [address] Phys: Amy Young DO Acct: [id number] Dis Date: Status: REG ER PHONE #: [phone] Exam Date: 05/14/2018 1415 FAX #: [phone] Reason: BACK PAIN EXAMS: CPT CODE: [id number] XR T-SPINE 3 VIEWS 19878 HISTORY: Pain. COMPARISON: None available. 3 VIEWS OF THE LEFT ELBOW: No acute fracture or dislocation. Elbow joint is narrowed. No joint fluid. IMPRESSION: No acute fracture or dislocation. 2 V IEWS OF THE T-SPINE: No acute fracture or dislocation. Vertebr al body heights are maintained. Disc spaces are narrowed. No paravertebr al lesions. Mild levoscoliosis. IMPRESSION: No acute fracture or dislocation. Vertebral body heights are devika ntained. LEFT HIP SERIES, 4 VIEWS: Pelvic ring is intact. Symphysis is well opposed. SI joints are preserv ed. No AVN. Subchondral cyst within the femoral head. Narrowed hip joint . Trabecular pattern is normal. Mild demineralization is noted. Soft tis sues are normal. IMPRESSION: No acute fractu re or dislocation. Narrowed hip joint with subchondral cyst. No AVN. at 1423 Reported and signed by: Onur Steven M.D. PAGE 1 Signed Report (CONTINUED) FAX: Mumtaz Hansen Si [phone] [place]: B St: REG FAX: Michael Young DO Name: JOHN ALICIA [facility] : 1935 Age/S: 82/F [address] [facility] Unit #: [id number] Loc: [place] [address] Phys: Amy Young DO Acct: [id number] Dis Date: Status: REG ER PHONE #: [phone] Exam Date: 05/14/2018 1415 FAX #: [phone] Reason: BACK PAIN EXAMS: CPT CODE: [id number] XR T-SPINE 3 VIEWS 94650 < Continued> CC: Lacie Medellin MD; Amy Young DO Technologist: Jose FAUSTIN(R) Trnscrd Date/Time/By: 05/14/2018 (1429) : By: [email or web address] Orig Print D/T: S: 05/14/2018 (6516) PAGE 2 Signed Report - XR HIP W/PEL UNI 2+V LT 2018-05-14 14:29:00 FAX: Mumtaz Medellin Si [phone] [place]: B St: REG FAX: Amy Young DO Name: JOHN ALICIA [facility] : 1935 Age/S: 82/F [address] Unit #: [id number] Loc: [place] [address] Phys: HectorMichaelAmy DO Acct: [id number] Dis Date: Status: REG ER PHONE #: [phone] Exam Date: 05/14/2018 1415 FAX #: [phone] Reason: HIP PAIN EXAMS: CPT CODE: [id number] XR HIP W/PEL UNI 2+[place] [address] HISTORY: Pain. COMPARISON: None available. 3 VIEWS OF THE LEFT ELBOW: No acute fracture or dislocation. Elbow joint is narrowed. No joint fluid. IMPRESSION: No acute fracture or dislocation. 2 VIEWS OF THE T- SPINE: No acute fracture or dislocation. Vertebral body heights are maintained. Disc spaces are narrowed. No paravertebral lesions. Mild levoscoliosis. IMPRESSION: No acute fracture or dislocation. Vertebral body heights are devika ntained. LEFT HIP SERIES, 4 VIEWS: Pelvic ring is intact. Symphysis is well opposed. SI joints are preserv ed. No AVN. Subchondral cyst within the femoral head. Narrowed hip joint . Trabecular pattern is normal. Mild demineralization is noted. Soft tis sues are normal. IMPRESSION: No acute fractu re or dislocation. Narrowed hip joint with subchondral cyst. No AVN. at 1429 Reported and signed by: Onur Steven M.D. PAGE 1 Signed Report (CONTINUED) FAX: Mumtaz Hansen Si [phone] [place]: B St: REG FAX: Michael Young DO Name: [facility] : 1935 Age/S: 82/F [address] Unit #: [id number] Loc: [place] [address] Phys: Amy Young DO Acct: [id number] Dis Date: Status: REG ER PHONE #: [phone] Exam Date: 05/14/2018 1415 FAX #: [phone] Reason: HIP PAIN EXAMS: CPT CODE: [id number] XR HIP W/PEL UNI 2+[place] [address] < Continued> CC: Lacie Medellin MD; Amy Young DO Technologist: Jose FAUSTIN(R) Trnscrd Date/Time/By: 05/14/2018 (1429) : By: [email or web address] Orig Print D/T: S: 05/14/2018 (3219) PAGE 2 Signed Report - XR ELBOW 3 + V LT 2018-05-14 14:29:00 FAX: Mumtaz Medellin,Gwyn [phone] [place]: B St: REG FAX: Amy Young DO Name: JOHN ALICIA [facility] : 1935 Age/S: 82/F [address] Unit #: [id number] Loc: [place] [address] Phys: Amy Young DO Acct: [id number] Dis Date: Status: REG ER PHONE #: [phone] Exam Date: 05/14/2018 1415 FAX #: [phone] Reason: ELBOW PAIN EXAMS: CPT CODE: [id number] XR ELBOW 3 + [place] [address] HISTORY: Pain. COMPARISON: None available. 3 VIEWS OF THE LEFT ELBOW: No acute fracture or dislocation. Elbow joint is narrowed. No joint fluid. IMPRESSION: No acute fracture or dislocation. 2 VIEWS OF THE T- SPINE: No acute fracture or dislocation. Vertebral body heights are maintained. Disc spaces are narrowed. No paravertebral lesions. Mild levoscoliosis. IMPRESSION: No acute fracture or dislocation. Vertebral body heights are devika ntained. LEFT HIP SERIES, 4 VIEWS: Pelvic ring is intact. Symphysis is well opposed. SI joints are preserv ed. No AVN. Subchondral cyst within the femoral head. Narrowed hip joint . Trabecular pattern is normal. Mild demineralization is noted. Soft tis sues are normal. IMPRESSION: No acute fractu re or dislocation. Narrowed hip joint with subchondral cyst. No AVN. at 4039 Reported and signed by: Onur Steven M.D. PAGE 1 Signed Report (CONTINUED) FAX: Mumtaz Hansen Si [phone] [place]: St: REG FAX: Michael Young DO Name: [facility] Center : 1935 Age/S: 82/F [address] [facility] Unit #: [id number] Loc: [place] [address] Phys: Amy Young DO Acct: [id number] Dis Date: Status: REG ER PHONE #: [phone] Exam Date: 05/14/2018 1415 FAX #: [phone] Reason: ELBOW PAIN EXAMS: CPT CODE: [id number] XR ELBOW 3 + [place] [id number] < Continued> CC: Lacie Medellin MD; Amy Young DO Technologist: Jose FAUSTIN(R) Trnscstar Date/Time/By: 05/14/2018 (1424) : By: [email or web address] Orig Print D/T: S: 05/14/2018 (7965) PAGE 2 Signed Report - CT C-SPINE W/O CONTRAST 2018-05-14 13:56:00 Name: JOHN ALICIA [facility] : 1935 Age/S: 82 / F [address] [facility] Unit #: [id number] Loc: [place] [address] Phys: Amy Young DO Acct: [id number] Dis Date: Status: REG ER PHONE #: [phone] Exam Date: 05/14/2018 1333 FAX #: [phone] Reason: Neck Pain EXAMS: CPT CODE: [id number] CT C-SPINE W/O CONTRAST 42465 HISTORY: Fall and pain. COMPARISON: None available. CT cervical spine without contrast: Automated exposure control. No acute fracture of the cervical spine. No prevertebral soft tissue swelling is noted. Moderate facet hypertrophy throughout the cervical spine resulting in moderate foraminal stenosis throughout the cervical spine. Scattered posterior disc osteophytes with mild canal stenosis. Thyroid glands are normal. Esophageal wall is not thickened. Superior mediastinum is unremarkable. Lung apices demonstrating incompletely included pleural-based mass in the right upper lobe posteriorly and medially measuring 1.3 cm. Nodular pleural and parenchymal scarring in the left apex. Correlate with CT chest for further evaluation. Anatomic alignment. Vertebral body heights are maintained. Narrowed disc space at C5-C6 level. Osteopenia. Uncovertebral joints are narrowed. IMPRESSION: No acute fracture. Anatomic alignment. DJD. 1.3 cm incompletely included pleural based mass in the posterior right upper lobe and marked pleural and parenchymal scarring in the left apex. Correlate with CT chest. at 1356 Reported and signed by: Onur Steven M.D. CC: Lacie Dhaliwal MD; Amy Young DO Technologist:Dave Palomares RT(R),(MR ),(CT); CTDI: DLP: Trnscb Date/Time: 05/14/2018 (4806) [email or web address] Orig Print D/T: S: 05/14/2018 (1400) CTDI: DLP: PAGE 1 Signed Report - CT HEAD/BRAIN W/O [id number] 13:41:00 Name: JOHN ALICIA [facility] : 1935 Age/S: 82 / F [address] Unit #: [id number] Loc: [place] [address] Phys: Amy Young DO Acct: [id number] Dis Date: Status: REG ER PHONE #: [phone] Exam Date: 05/14/2018 1333 FAX #: [phone] Reason: HEADACHE EXAMS: CPT CODE: [id number] CT HEAD/BRAIN W/O CONT 53666 HISTORY: Headache. COMPARISON: February 19, 2017. CT brain without contrast: Automated exposure control. No acute intracranial bleeds or extra-axial collections are noted. No acute territorial vascular infarction is noted. The sulci, gyri, ventricles and subarachnoid spaces and the basilar cisterns are normal for patient's age. No herniation or hydrocephalus or midline shift is noted. Mild periventricular ischemic gliosis is noted. Age-appropriate atrophy is noted as well. Portions of the visualized paranasal sinuses are normal. No obvious bony calvarial defect is noted. IMPRESSION: No acute intracranial bleeds or extra-axial collections. No acute territorial vascular infarction. No herniation or hydroce phalus or midline shift. Chronic white matter ischemic diseas e and atrophy . at 1341 Reported and signed by: Onur Steven M.D. CC: Lacie Medellin MD; Amy Young DO Technologist:Dave Palomares RT(R),(MR),(CT); CTDI: DLP: Trn scb Date/Time: 05/14/2018 (1341) [email or web address] Orig Print D/T : S: 05/14/2018 (4130) CTDI: DLP: PAGE [address] LUMBAR SPINE WO [place] [address] Patient Name: JOHN ALICIA MR #: [id number] : 0 1935 Age/Sex: 81/F Req #: [id number] [facility] Physician: Ordered by: LACIE RODRÍGUEZ MD Report #: [id number] Location: CT Room/Be d: Procedure: [id number] CT/CT LUMBAR SPINE WO Exam D ate: 12/21/16 Exam Time: 1145 REPORT STATUS: Si gned Exam: Lumbar spine CT without IV contrast History: Low back pain Com parison studies: Lumbar spine x-ray of 05/31/2015. Technique: Axial images were obtained through the lumbar spine. Coronal and sagittal images reconstructed from the axial data. Intravenous contrast: None Findings: Number of non-rib bearing vertebral bodies: 5 Alignment: Normal lumbar lordosis. Appr oximately 2 mm degenerative anterolisthesis of L4 and L5 and 2 mm retrolisthes is of L5 on S1. Soft tissues: No abnormalities. Paraspinal muscles: Unremark able. Sacroiliac joints: No degenerative changes. Vertebrae: No acute fractures, infection or neoplasm. Chronic anterior superior L3 wedge compress ion deformity with minimal height loss anteriorly is unchanged. There are Schm orl's nodes along the L1 and L2 endplates, largest along the inferior L2 endpl ate. Nonaggressive-appearing 1.2 cm cyst in the L4 spinous process Degenera tive changes: L1-L2: Patent canal and foramina. L2-L3: Disc bulge and mild facet arthrosis result in minimal bilateral foraminal stenosis. No s ignificant canal stenosis. L3-L4: Disc bulge, thickened ligamenta flava a nd facet arthrosis result in mild canal and bilateral foraminal stenosis. L4-L5: Minimal anterolisthesis of L4 and L5 with associated uncovered disc/di sc bulge asymmetric to the right and moderate bilateral facet arthrosis result in mild canal stenosis mild right foraminal stenosis. No significant left for aminal stenosis. L5-S1: Minimal retrolisthesis of L5 on S1 with associa collin uncovered disc/disc bulge and mild facet arthrosis without significant can al or foraminal stenosis. Sacroiliac joints. Moderate degenerative changes on the left and mild degenerative changes on the right with periarticular scle rosis and subchondral cyst formation. Incidental findings: Moderate calcified atherosclerosis in the abdominal aorta and within its branching ves sels. Severe right hydronephrosis with severe renal cortical atrophy. A 4 mm calcification in the right kidney is most likely a vascular calcification. There is a 4 mm hyperdense cyst in the posterior midpole of the right kidney and a 2.6 cm simple-appearing cyst in the midpole the left kidney. Follow-up renal ultrasound could further evaluate if not recently performed. IMPRESSI ON: 1. Chronic superior L3 endplate wedge compression deformity. 2. Mil d degenerative canal stenosis at L3-L4 and at L4-L5. 3. Mild multilevel fora anusha stenosis, worse on the right at L4-5. 4. Multilevel facet arthrosis, w orse/moderate bilaterally at L4-L5. 5. Incidental findings as described. Signed by: Dr. Pavan Stiles M.D. on 12/23/2016 1:40 AM Dictated By: CARO STILES MD 9 Transcribed By: PHILIP on 12/23/16139 COPY TO: LACIE RODRÍGUEZ MD
[2018-08-21] MEDS ORDERED: KETOROLAC TROMETHAMINE 30 MG/ML VIAL IM STA (07:44)
--- NOTE | 2018-08-21 09:15 | Diagnostic Imaging Report ---
Exam: Pelvis and bilateral hips History: Status post fall Comparison: None available Findings: No acute, displaced fracture or dislocation. Femoral heads project appropriately over the acetabula. 3 Intact orthopedic screws traverse the intertrochanteric left femur before terminating in the femoral head. Mild symmetric joint space narrowing of the hips. Sacroiliac joints are intact. Degenerative disc changes of the partially visualized lower lumbar spine. Impression: No acute osseous abnormality. Intact surgical hardware proximal left femur. Signed by: Dr. Varun Bullock M.D. on 08/21/2018 9:12 AM
--- NOTE | 2018-08-21 09:24 | Diagnostic Imaging Report ---
Exam: Left knee 3 views History: Fall, knee pain Comparison: None. Findings: No acute, displaced fracture or dislocation. Joint spaces are well-maintained. Atherosclerotic vascular calcifications. Soft tissues otherwise unremarkable. Impression: No acute osseous abnormality. Signed by: Dr. Varun Bullock M.D. on 08/21/2018 9:20 AM
--- NOTE | 2018-08-21 09:39 | NUR ---
NOTIFIED [facility] FOR WHEELCHAIR VAN TRANSPORT TO D/C HOME, SPOKE WITH ALBERT.
[2018-08-21 09:42] VITALS: BP 108/58
--- NOTE | 2018-08-21 09:42 | NUR ---
PATIENT STATES THAT HER FRIEND IS GOING TO TRANSPORT HER HOME. NOTIFIED [facility] TO CANCEL WHEELCHAIR VAN,SPOKE WITH ALBERT.
== END 2018-08-21 09:52 | disposition home or self-care (01) ==
LOC: ER 06:50
DX: M25.562 Pain in left knee (principal); M25.561 Pain in right knee; W06.XXXA Fall from bed, initial encounter; W01.0XXA Fall on same level from slipping, tripping and stumbling without subsequent striking against object, initial encounter; Y93.84 Activity, sleeping; Y92.003 Bedroom of unspecified non-institutional (private) residence as the place of occurrence of the external cause; Z98.890 Other specified postprocedural states; I10 Essential (primary) hypertension; J44.9 Chronic obstructive pulmonary disease, unspecified
CPT/HCPCS: 73522; 73562; 99283; J1885